=== PATIENT | male | born 1960 ===

== ENCOUNTER 2018-03-22 09:58 | Emergency (ER) | payer MEDICAID, OTHER ==
[2018-03-22 10:16] VITALS: BP 114/70; PULSE 81; RESP 16; TEMP 97; O2SAT 98
--- NOTE | 2018-03-22 11:17 | ED PDOC ---
HPI: General Adult Time Seen by Provider: 03/22/18 10:16 Chief Complaint (Nursing): ENT Problem Chief Complaint (Provider): Memory loss History Per: Patient Additional Complaint(s): Pt is a 58 yo male, no PMH, presents to ED with c/o pain rt ear clogged sensation and sometimes loss of memory x 2 weeks, also c/o slight pain lt lateral chest x 1 week. Pt at this time offers no physical complaints. Pt denies weakness, speech impairment, headache, visual loss, chest pain, SB, abdominal pain, nausea, vomiting, diarrhea or constipation Past Medical History Reviewed: Historical Data, Nursing Documentation, Vital Signs Vital Signs: Last Vital Signs Temp 97 F L 03/22/18 10:13 Pulse 81 03/22/18 10:13 Resp 16 03/22/18 10:13 BP 114/70 03/22/18 10:13 Pulse Ox 98 03/22/18 14:06 - Surgical History Surgical History: Appendectomy - Family History Family History: States: Unknown Family Hx - Living Arrangements Living Arrangements: With Family - Social History Current smoker - smoking cessation education provided: Yes Alcohol: Social Drugs: Denies - Allergies Allergies/Adverse Reactions: Allergies Allergy/AdvReac Type Severity Reaction Status Date / Time No Known Allergies Allergy Verified 03/22/18 10:13 Review of Systems ROS Statement: Except As Marked, All Systems Reviewed And Found Negative ENT: Positive for: Ear Pain Cardiovascular: Positive for: Chest Pain Neurological: Positive for: Other (memory loss) Physical Exam - Reviewed Nursing Documentation Reviewed: Yes Vital Signs Reviewed: Yes - Physical Exam Appears: Positive for: Well, Non-toxic, No Acute Distress Head Exam: Positive for: ATRAUMATIC, NORMAL INSPECTION, NORMOCEPHALIC Skin: Positive for: Normal Color, Warm, DRY Eye Exam: Positive for: EOMI, Normal appearance, PERRL ENT: Positive for: TM Is/Are (WNL) Neck: Positive for: Normal, Painless ROM Cardiovascular/Chest: Positive for: Regular Rate, Rhythm Respiratory: Positive for: CNT, Normal Breath Sounds Gastrointestinal/Abdominal: Positive for: Normal Exam, Soft Back: Positive for: Normal Inspection Extremity: Positive for: Normal ROM Neurologic/Psych: Positive for: Alert, Oriented - Laboratory Results Result Diagrams: 03/22/18 11:30 03/22/18 11:30 - ECG O2 Sat by Pulse Oximetry: 98 Medical Decision Making Medical Decision Making: EKG interpreted and cleared by ED MD Pt placed on manager monitoring, vitals remain stable diagnostics ordered labs resulted and reviewed with Pt who demonstrated full understanding. HEAD CT IMPRESSION: No acute intracranial findings by standard CT criteria. Limited age-appropriate age related neuro degenerative changes are identified as discussed above. No significant interval change. CT 11/14/2016. Pt doing well on re-eval, offers no complaints. All results discussed with Pt who reports feeling well and wanting to go home. Observation offered; however, Pt requesting to go home, reports he wanted to make sure he did not have a stroke since he was having trouble remembering things. Disposition - Clinical Impression Clinical Impression: Left ear pain, Memory loss or impairment - Patient ED Disposition Is Patient to be Admitted: No - Disposition Disposition: Routine/Home Disposition Time: 14:13 Condition: STABLE Instructions: Evaluating Memory and Thinking Problems Forms: [employer] (Slovak), [employer] (H[place]ian)
[2018-03-22 11:47] LABS: BASO # 0.1 K/uL (0.0-0.2); BASO % 0.9 % (0.0-2.0); EOS # 0.2 K/uL (0.0-0.7); EOS % 3.2 % (0.0-4.0); LYMPH # 1.9 K/uL (1.0-4.3); LYMPH % 27.1 % (20.0-40.0); MEAN CELL VOLUME 97.2 fl (80.0-94.0); MEAN CORPUSCULAR HEMOGLOBIN 33.4 pg (27.0-31.0); MEAN CORPUSCULAR HGB CONC 34.4 g/dL (33.0-37.0); MEAN PLATELET VOLUME 9.8 fl (7.2-11.7); MONO # 0.6 K/uL (0.0-0.8); MONO % 9.4 % (0.0-10.0); NEUT # 4.1 K/uL (1.8-7.0); NEUT % 59.4 % (50.0-75.0); NRBC % 0.1 % (0.0-0.0); RBC 4.19 Mil/uL (4.40-5.90); RED CELL DISTRIBUTION WIDTH 14.6 % (11.5-14.5); WHITE BLOOD COUNT 6.9 K/uL (4.8-10.8)
[2018-03-22 11:57] LABS: PARTIAL THROMBOPLASTIN TIME 29.7 Seconds (25.6-37.1); PROTHROMBIN TIME 10.5 Seconds (9.8-13.1)
[2018-03-22 12:01] LABS: ALB/GLOB RATIO 1.3 (1.0-2.1); ALBUMIN 4.1 g/dL (3.5-5.0); ALT/SGPT 54 U/L (21-72); AST/SGOT 64 U/L (17-59); BLOOD UREA NITROGEN 8 mg/dl (9-20); GFR AFRICAN-AMERICAN > 60; GFR NON-AFRICAN AMERICAN > 60
--- NOTE | 2018-03-22 12:04 | RAD ---
Date of service: 03/22/2018 HISTORY: Code Stroke COMPARISON: Chest radiographs 11/04/2016. FINDINGS: LUNGS: No active pulmonary disease. PLEURA: No significant pleural effusion identified, no pneumothorax apparent. CARDIOVASCULAR: Normal. OSSEOUS STRUCTURES: No significant abnormalities. VISUALIZED UPPER ABDOMEN: Normal. OTHER FINDINGS: None. IMPRESSION: No interval acute cardiopulmonary disease appreciated.
--- NOTE | 2018-03-22 12:54 | CT ---
Date of service: 03/22/2018 PROCEDURE: CT HEAD WITHOUT CONTRAST. HISTORY: left sided intermittent facial numbness x 2 weeks COMPARISON: Noncontrast head CT 11/04/2016. TECHNIQUE: Axial computed tomography images were obtained through the head/brain without intravenous contrast. Radiation dose: Total exam DLP = 1753.61 mGy-cm. This CT exam was performed using one or more of the following dose reduction techniques: Automated exposure control, adjustment of the mA and/or kV according to patient size, and/or use of iterative reconstruction technique. FINDINGS: HEMORRHAGE: No intracranial hemorrhage. BRAIN: Good corticomedullary differentiation is seen. Proportional, diffuse expansion of the ventriculosulcal and cisternal spaces is appreciated with minimal white matter lucency compatible with diffuse cerebral atrophy and chronic microangiopathy. No suspicious extra-axial fluid collection is identified and the midline brain anatomy appears grossly nonfocal as imaged. There is no mass effect throughout. VENTRICLES: Unremarkable. No hydrocephalus. CALVARIUM: Unremarkable. PARANASAL SINUSES: Unremarkable as visualized. No significant inflammatory changes. MASTOID AIR CELLS: Unremarkable as visualized. No inflammatory changes. OTHER FINDINGS: None. IMPRESSION: No acute intracranial findings by standard CT criteria. Limited age-appropriate age related neuro degenerative changes are identified as discussed above. No significant interval change. CT 11/14/2016.
--- NOTE | 2018-03-23 17:58 | CARD ---
APPROVED REPORT Date of service: 03/22/2018 EKG Measurement Heart [id number] <Conclusion> Normal sinus rhythm Possible Left atrial enlargement Left ventricular hypertrophy Abnormal ECG
== END 2018-03-22 14:10 | disposition home or self-care (01) ==
LOC: H.ER 09:58
DX: H92.02 Otalgia, left ear (principal); R41.3 Other amnesia